=== PATIENT | female | born 1945 | race Caucasian/White ===

== ENCOUNTER 2020-06-26 09:37 | Outpatient (CLI) | payer MEDICARE | END 2020-06-26 09:38 | disposition home or self-care (01) | LOC: CSHWCC 09:37 | PROVIDERS: ATTEND Nurse Practitioner Family | DX: T81.30XD Disruption of wound, unspecified, subsequent encounter (principal); W01.198D Fall on same level from slipping, tripping and stumbling with subsequent striking against other object, subsequent encounter | CPT/HCPCS: 97139; G0463; 99202 ==

== ENCOUNTER 2020-06-28 08:33 | Outpatient (CLI) | payer MEDICARE | END 2020-06-28 08:34 | disposition home or self-care (01) | LOC: CSHWCC 08:33 | PROVIDERS: ATTEND Nurse Practitioner Family | DX: T81.30XD Disruption of wound, unspecified, subsequent encounter (principal); W01.198D Fall on same level from slipping, tripping and stumbling with subsequent striking against other object, subsequent encounter | CPT/HCPCS: 11042; 97139; G0463; 99212 ==